=== PATIENT | female | born 1990 | race African-American/Black ===

== ENCOUNTER 2022-03-04 09:39 | Emergency (ER) | payer OTHER ==
[2022-03-04] MEDS ORDERED: Acetaminophen 500 MG TAB ONE (10:25)
== END 2022-03-04 10:28 | disposition home or self-care (01) ==
LOC: CSHERS 09:39
DX: O22.42 Hemorrhoids in pregnancy, second trimester (principal); Z3A.22 22 weeks gestation of pregnancy
CPT/HCPCS: 99282